=== PATIENT | female | born 1965 | race Caucasian/White ===

== ENCOUNTER 2019-05-27 08:01 | Outpatient (CLI) | payer OTHER, SELFPAY ==
--- NOTE | 2019-05-27 08:00 | MR_ITS ---
WS: [id number] MRI of the cervical spine, 05/27/2019 Clinical Data: neck pain Comparison: Cervical spine x-ray, 02/25/2018. Findings: No compression fractures are seen. There is no prevertebral soft tissue swelling. The odontoid is nor mal. The cervical spinal cord shows a normal signal with no cord cysts or masses. C2-C3: No canal stenosis, disc bulge or foraminal narrowing is seen. C3-C4: No canal stenosis, disc bulge or foraminal narrowing is seen. C4-C5: There is a small central disc bulge causing mild canal stenosis. C5-C6: There is a broad-based central bulging disc causing canal stenosis. C6-C7: No canal stenosis, disc bulge or foraminal narrowing is seen. C7-T1: No canal stenosis, disc bulge or foraminal narrowing is seen. MR/MR cervical spin wo con* [id number] Impression: 1. Small central disc bulge at C4-C5 causing central canal stenosis. 2. Broad-based central disc bulge causing moderate canal stenosis at C5-C6.
== END 2019-05-27 08:02 | disposition home or self-care (01) ==
PROVIDERS: Family Provider Nurse Practitioner; PCP Nurse Practitioner; Visit Provider Nurse Practitioner
DX: M47.12 Other spondylosis with myelopathy, cervical region (principal); M47.22 Other spondylosis with radiculopathy, cervical region; M50.221 Other cervical disc displacement at C4-C5 level; M48.02 Spinal stenosis, cervical region
CPT/HCPCS: 72141

== ENCOUNTER 2019-07-03 08:54 | Outpatient (CLI) | payer OTHER, SELFPAY ==
--- NOTE | 2019-07-03 | XR_ITS ---
WS: [id number] CERVICAL SPINE 2 VIEWS HISTORY: Arthrodesis status. COMPARISON: 02/25/2018 Mild straightening of the normal cervical lordosis. Anterior cervical fusion at C5-6 with interbody spacer has been placed since the prior study. The ali gnment at C5-6 is normal with resume of the disc space. No complications. Soft tissues are normal. XR/XR cervical spine 3V* [id number] IMPRESSION: 1. Interval placement of an anterior cervical fusion plate and screw fixation with interbody spacer. Restorationism of the disc space height. 2. No complications.
== END 2019-07-03 08:55 | disposition home or self-care (01) ==
LOC: RAD 08:56
PROVIDERS: Family Provider Nurse Practitioner; PCP Nurse Practitioner; Visit Provider Neurological Surgery
DX: Z98.1 Arthrodesis status (principal)
CPT/HCPCS: 72040

== ENCOUNTER 2019-09-02 10:33 | Outpatient (CLI) | payer OTHER, SELFPAY ==
--- NOTE | 2019-09-02 10:46 | XR_ITS ---
WS: [id number] CERVICAL SPINE TECHNIQUE: 3 views of the cervical spine CLINICAL INFORMATION: ARTHRODESIS STATUS, S/P CERVICAL FUSION COMPARISON: July 03, 2019 FINDINGS: Postoperative changes anterior cervical fusion with interbody fusion C5-6. Hardware appears in good p osition. Postoperative prevertebral soft tissue edema. Straightening of the normal cervical lordosis. XR/XR cervical spine 3V* [id number] IMPRESSION: Satisfactory postoperative ACDF C5-6.
== END 2019-09-02 10:34 | disposition home or self-care (01) ==
LOC: RADWPI 10:38
PROVIDERS: Family Provider Nurse Practitioner; PCP Nurse Practitioner; Visit Provider Neurological Surgery
DX: Z98.1 Arthrodesis status (principal); M43.22 Fusion of spine, cervical region
CPT/HCPCS: 72040

== ENCOUNTER → 2019-09-10 11:54 | Outpatient (BNVA) | payer OTHER, SELFPAY | PROVIDERS: Family Provider Nurse Practitioner; PCP Nurse Practitioner; Visit Provider Nurse Practitioner | DX: M25.511 Pain in right shoulder (principal); G89.29 Other chronic pain; M75.41 Impingement syndrome of right shoulder | CPT/HCPCS: 73030 ==

== ENCOUNTER 2019-10-14 08:18 | Outpatient (CLI) | payer SELFPAY ==
--- NOTE | 2019-10-14 08:45 | MR_ITS ---
WS: [id number] MRI RIGHT SHOULDER HISTORY: M25.519 Pain in unspecified shoulder COMPARISON: RIGHT shoulder radiograph 09/10/2019 TECHNIQUE: Multiplanar sequences of the shoulder joint are submitted. Moderate narrowing of the AC joint. There is increased T2 signal along the AC ligament and fluid in t he subacromial and subdeltoid bursa. Bony hypertrophy of the distal clavicle with encroachment upon t he supraspinatus muscle. No os acromion. Small subchondral cyst in the posterior lateral humeral head. No definite rotator cuff tears are identified. There is increased signal along the articular surface of the distal supraspinatus tendon. There is thickening of the tendon and this is more likely tendino juno then a tendon tear. No muscle atrophy or edema. There is a small lobulated fluid collection ove r the posterior lateral humeral head which is external to the rotator cuff probably subchondral cyst. Biceps tendon is in normal position. No labral tear is identified. MR/MR shoulder RT wo con* [id number] IMPRESSION: 1. Mild AC joint sprain. 2. Distal clavicle osteophyte with moderate impingement upon the supraspinatus muscle. 3. Tendinopathy distal supraspinatus tendon greatest along the articular surfa ce. More typical for tendinopathy then partial articular surface tear.
== END 2019-10-14 08:19 | disposition home or self-care (01) ==
PROVIDERS: PCP Nurse Practitioner; Visit Provider Orthopaedic Surgery
DX: M25.511 Pain in right shoulder (principal); S43.51XA Sprain of right acromioclavicular joint, initial encounter; M25.711 Osteophyte, right shoulder; X58.XXXA Exposure to other specified factors, initial encounter
CPT/HCPCS: 73221

== ENCOUNTER 2020-10-23 12:41 | Emergency (ER) | payer OTHER, SELFPAY ==
[2020-10-23 13:16] VITALS: BP 126/60; PULSE 62; RESP 15; TEMP 36.7; O2SAT 96; BMI 28.3
--- NOTE | 2020-10-23 13:18 | ED_ITS ---
HPI - Dental/Oral General: Chief complaint: Dental/Oral Stated complaint: DENTAL PAIN Time Seen by Provider: 10/23/20 13:18 Source: patient Mode of arrival: ambulatory Limitations: no limitations History of Present Illness: HPI Narrative: Patient is a 55-year-old female presents to ED today with a complaint of right lower dental pain where she had a recent extraction performed. She has not noticed any facial or neck swelling. She states she has tried to contact the dentist that performed the procedure but they are not open on Fridays and throughout the weekend. She has plans to contact them on Sunday. 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 COPD, mild Mixed hyperlipidemia Smoking history Surgical History (Updated 10/23/20 @ 13:20 by BRENDON Rea) History of hysterectomy Partial 1993 Ovaries removed in 1997 Family History Other Cancer Diabetes Social History Smoking and tobacco status: current every day smoker Smoking risk assessment/counseling performed?: Yes Alcohol intake: unknown Desire information about alcohol rehabilitation?: No Counseling given: No Desire information about substance/drug rehabilitation?: No Counseling given: No Adopted: No Caregiver/support person: No Lives independently: Yes Household members: spouse Marital status: Number of children: 2 service: No Current occupational status: employed Current occupational exposures/hazards: Yes Pets and animals: Yes History of recent travel: No Current gender identity: Female Physical Exam Const: COMMON NORMALS: no acute distress, patient oriented x3, no limitations and alert GENERAL APPEARANCE: cooperative HENMT: COMMON NORMALS: normocephalic, atraumatic, moist oral mucous membranes and oropharynx normal HEAD & SCALP: normal to inspection, normocephalic and atraumatic FACE & SINUS: normal facial exam TEETH & GINGIVA IMAGES: 1. extracted tooth with inflammation surrounding socket THROAT: posterior oropharynx normal, tonsils normal and uvula midline Neck/C-Spine: COMMON NORMALS: full ROM, no lymphadenopathy and no meningeal signs Neuro: COMMON NORMALS: patient oriented x3 and CN's II-XII intact bilaterally SENSORIUM/ORIENTATION: Yes alert MENINGEAL SIGNS: Yes no meningeal signs Course Vital Signs: Vital signs: Vital Signs Temperature 98.0 F 10/23/20 13:27 Pulse Rate 62 10/23/20 13:16 Respiratory Rate 15 10/23/20 13:27 Blood Pressure 126/60 10/23/20 13:16 Pulse Oximetry 96 10/23/20 13:27 MDM - Dental/Oral MDM Narrative: Medical decision making narrative: Will place on abx and recommend she contact her dentist on Sunday. Return to ED precautions given. Discharge Plan Discharge Patient Disposition: Home Clinical Impression: Status post tooth extraction Condition: Stable Prescriptions: New penicillin V potassium 500 mg tablet 500 mg PO Q8H 7 Days Qty: 21 RF: 0 Peridex 0.12 % mouthwash 15 ml BUCCAL BID Qty: 473 RF: 0 Discharge Orders: Discharge ED (Routine); Ordered 10/23/20 Ordered By: Tami Diamond Referrals: Sagrario Leiva, [facility] [Primary Care Provider] - Coding Level of Care Code ED Chief Security Officer for Dennis Domínguez
[2020-10-23 13:27] VITALS: RESP 15; TEMP 36.7; O2SAT 96
== END 2020-10-23 13:27 | disposition home or self-care (01) ==
PROVIDERS: Emergency Provider Physician Assistant; PCP Nurse Practitioner
DX: K08.9 Disorder of teeth and supporting structures, unspecified (principal); J44.9 Chronic obstructive pulmonary disease, unspecified; E78.2 Mixed hyperlipidemia; F17.200 Nicotine dependence, unspecified, uncomplicated; Z98.818 Other dental procedure status
CPT/HCPCS: 99282

== ENCOUNTER 2023-09-25 13:30 | Outpatient (CLI) | payer OTHER, SELFPAY | END 2023-09-25 13:31 | disposition home or self-care (01) | LOC: SLEEP 09-26 11:23 | PROVIDERS: PCP Nurse Practitioner; Visit Provider Anesthesiology Pain Medicine | DX: G47.33 Obstructive sleep apnea (adult) (pediatric) (principal) | CPT/HCPCS: G0399 ==

== ENCOUNTER 2024-01-10 08:19 | Outpatient (CLI) | payer OTHER, SELFPAY ==
--- NOTE | 2024-01-10 08:31 | MR_ITS ---
WS: [id number] MRI CERVICAL SPINE NONCONTRAST HISTORY: NECK PAIN COMPARISON: 05/27/2019 Technique: Multiplanar, multisequence noncontrast imaging of the cervical spine. Study is compromised by motion. Mild straightening of the normal cervical lordosis. 2 mm retrolisthesis of C3. Anterior cervical fusi on at C5-6. Slight increased T2 signal in the cervical cord along the ventral surface at the C6 level. Less edema as compared to 2019 since the fusion. Craniocervical junction, C1 and C2 relationship, odontoid process and soft tissues are normal. C2-C3: Normal. C3-C4: Moderate central disc protrusion. Effacement of ventral CSF. Disc protrusion now extends sligh tly cephalad from the disc level. There is effacement of CSF and slightly greater contact on the cord . Moderate central and LEFT foraminal stenosis. Mild RIGHT foraminal stenosis. C4-C5: Small central disc protrusion. Similar to the prior study. Minimal narrowing the central canal . C5-C6: Broad-based central disc bulging with facet arthropathy. Mild central with bilateral foraminal stenosis, LEFT greater than RIGHT. C6-C7: Diffuse annular disc bulging with facet arthritis. Moderate central with severe bilateral fora nelia stenosis. C7-T1: Small central disc protrusion. Mild facet arthritis. Paraspinal soft tissue are normal. MR/MR cervical spin wo con* [id number] IMPRESSION: 1. Interval anterior cervical fusion at C5-6 since the prior study from 05/27/19 20. 2. Improved edema in the cervical cord at C5-6 since the fusion. Remaining michelle rt segment focal myelomalacia at the C6 level. 3. C3-4: Moderate central disc protrusion has slightly increased in size and n ow extends slightly cephalad. Moderate central and LEFT foraminal stenosis. 4. C4-5: Small central disc protrusion. 5. C5-6: Mild central with bilateral foraminal stenosis, LEFT greater than RIG HT. 6. C6-7: Moderate central with severe bilateral foraminal stenosis. Mild progr ession since the prior study.
== END 2024-01-10 08:20 | disposition home or self-care (01) ==
PROVIDERS: PCP Nurse Practitioner Family; Visit Provider Nurse Practitioner
DX: M50.022 Cervical disc disorder at C5-C6 level with myelopathy (principal); M50.20 Other cervical disc displacement, unspecified cervical region; M99.61 Osseous and subluxation stenosis of intervertebral foramina of cervical region; M43.22 Fusion of spine, cervical region
CPT/HCPCS: 72141

== ENCOUNTER 2024-01-17 08:43 | Outpatient (CLI) | payer OTHER, SELFPAY ==
--- NOTE | 2024-01-17 08:45 | MM_ITS ---
WS: [id number] VIEWS: MLO and CC views both breasts. 3D digital tomosynthesis is also included in this exam. Comparison made with prior exam of 12/08/2010.. Findings: There are scattered areas of fibroglandular density. No sign of mass, tumor calcification or architectural distortion. Stable appearing scattered microcal cifications in the central RIGHT breast. Stereotactic biopsy marker noted in this region. MM/MM scr BI tomosynthesis [id number] Impression: BI-RADS: 2 - Benign FOLLOW-UP: 1 Year Follow-up This mammogram was also analyzed by the Computer Aided Detection System [employer] Associate [employer].
== END 2024-01-17 08:44 | disposition home or self-care (01) ==
LOC: RAD 08:43
PROVIDERS: PCP Nurse Practitioner Family; Visit Provider Nurse Practitioner Family
DX: Z12.31 Encounter for screening mammogram for malignant neoplasm of breast (principal); R92.323 Mammographic fibroglandular density, bilateral breasts; R92.1 Mammographic calcification found on diagnostic imaging of breast
CPT/HCPCS: 77063; 77067